=== PATIENT | female | born 1955 | race Caucasian/White ===

== ENCOUNTER → 2017-09-07 | Outpatient (CLI) | payer OTHER ==
--- NOTE | 2017-09-08 09:22 | BD ---
EXAMINATION TYPE: MG DEXA axial skeleton. DATE OF EXAM: 09/07/2017 COMPARISON: NONE CLINICAL HISTORY: Height: 63 Weight: 125.7 FRAX RISK QUESTIONS: Alcohol (3 or more units per day): no Family History (Parent hip fracture): no Glucocorticoids (More than 3mos): no (Ex: prednisone, prednisolone, methylprednisolone, dexamethasone, and hydrocortisone). History of Fracture in Adulthood: no Secondary Osteoporosis: 1. Type 1 Diabetes: no 2. Hyperthyroidism: no 3. Menopause before 45: no 4. Malnutrition: no 5. Chronic liver disease: no Rheumatoid Arthritis: no Current Tobacco Use: no RISK FACTORS HISTORY OF: Surgery to Spine/Hip(right/left)/Wrist (right/left): no Family History of Osteoporosis: no Active: yes Diet low in dairy products/other sources of calcium: no Postmenopausal woman: age 52 Take estrogen and/or progesterone medications: yes How long: around 8 years Lost more than 2 inches in height since high school: no Frequent falls: no Poor Health: no Hyperparathyroidism: no Adrenal Insufficiency: no MEDICATIONS: nortriptyline, gabapentin, Cymbalta Additional History: EXAM MEASUREMENTS: Bone mineral densitometry was performed using the SED Web System. Bone mineral density as measured about the Lumbar spine is: ----- L1-L4(G/cm2): 1.043 T Score Values are as follows: ----- L2: -1.3 ----- L3: -0.8 ----- L4: -0.9 ----- L1-L4: -1.1 Bone mineral density has: increased 3.3 % since study of: 01.21.2016 Bone mineral density about the R hip (g/cm2): 0.768 Bone mineral density about the L hip (g/cm2): 0.755 T Score values are as follows: -----R Neck: -1.9 -----L Neck: -2.0 -----R Total: -1.4 -----L Total: -1.5 Bone mineral density has: increased 2.2 % since study of: 01.21.2016 IMPRESSION: Osteopenia about the lumbar spine and bilateral femora. NOTE: T-SCORE=SD OF THE YOUNG ADULT MEAN.
--- NOTE | 2017-09-08 13:54 | MM ---
Reason for exam: screening (asymptomatic). Last mammogram was performed 1 year and 1 month ago. History: Patient is postmenopausal and had first child at age 35. Family history of breast cancer in paternal aunt at age 60. Benign left breast aspiration of the left breast, August 22, 2011. Taking estrogen for 8 years. Taking other hormone. Physical Findings: A clinical breast exam by your physician is recommended on an annual basis and results should be correlated with mammographic findings. MG 3D Screening Mammo W/Cad Bilateral CC, MLO, and XCCL view(s) were taken. Prior study comparison: August 07, 2016, bilateral MG 3d screening mammo w/cad. June 28, 2015, bilateral MG 3d screening mammo w/cad. The breast tissue is heterogeneously dense. This may lower the sensitivity of mammography. No suspicious abnormality in the right breast. There is a 5.5mm asymmetry of the upper left breast at posterior depth just anterior to the pectoralis musculature. ASSESSMENT: Incomplete: need additional imaging evaluation, BI-RAD 0 RECOMMENDATION: Special view mammogram of the left breast. If lesion persists on supplemental views, image directed ultrasound is recommended. [facility] will attempt to contact patient to return for supplemental views and ultrasound if indicated.
== END | disposition home or self-care (01) ==
LOC: RADMAMWWP 15:40
PROVIDERS: ATTEND Obstetrics & Gynecology
DX: Z12.31 Encounter for screening mammogram for malignant neoplasm of breast (principal); M85.88 Other specified disorders of bone density and structure, other site
CPT/HCPCS: 77063; 77067; 77080

== ENCOUNTER → 2017-09-14 | Outpatient (CLI) | payer OTHER ==
--- NOTE | 2017-09-14 09:21 | MM ---
Reason for exam: additional evaluation requested from abnormal screening. Last mammogram was performed less than 1 month ago. History: Patient is postmenopausal and had first child at age 35. Family history of breast cancer in paternal aunt at age 60. Benign left breast aspiration of the left breast, August 22, 2011. Taking estrogen for 8 years beginning at age 54. Taking other hormone. Physical Findings: Nurse did not find any significant physical abnormalities on exam. MG 3D Work Up W/Cad LT ML and spot compression MLO view(s) were taken of the left breast. Prior study comparison: September 07, 2017, bilateral MG 3d screening mammo w/cad. August 07, 2016, bilateral MG 3d screening mammo w/cad. The breast tissue is heterogeneously dense. This may lower the sensitivity of mammography. Finding: There is a 5 mm equal density (isodense), obscured margin irregular mass located 7 cm from the nipple in the 12 o'clock position of the left breast. This partially disperses on compression. New finding since August 07, 2016. These results were verbally communicated with the patient and result sheet given to the patient on 09/14/17. ASSESSMENT: Incomplete: need additional imaging evaluation, BI-RAD 0 RECOMMENDATION: Ultrasound of the left breast.
--- NOTE | 2017-09-14 09:22 | USB ---
Reason for exam: additional evaluation requested from abnormal screening. History: Patient is postmenopausal and had first child at age 35. Family history of breast cancer in paternal aunt at age 60. Benign left breast aspiration of the left breast, August 22, 2011. Taking estrogen for 8 years beginning at age 54. Taking other hormone. US Breast Workup Limited LT Left breast ultrasound demonstrates a 0.6 x 0.6 x 0.3cm hyperechoic lesion at 1 o'clock. These results were verbally communicated with the patient and result sheet given to the patient on 09/14/17. ASSESSMENT: Probably benign, BI-RAD 3 RECOMMENDATION: Follow-up diagnostic mammogram and ultrasound of the left breast in 3 months.
== END | disposition home or self-care (01) ==
LOC: RADMAMWWP 06:59
PROVIDERS: ATTEND Obstetrics & Gynecology
DX: R92.8 Other abnormal and inconclusive findings on diagnostic imaging of breast (principal)
CPT/HCPCS: 77065; 76642; G0279

== ENCOUNTER → 2017-12-14 | Outpatient (CLI) | payer OTHER ==
--- NOTE | 2017-12-14 09:08 | MM ---
Reason for exam: follow-up at short interval from prior study. Last mammogram was performed 3 months ago. History: Patient is postmenopausal and had first child at age 35. Family history of breast cancer in paternal aunt at age 60. Benign left breast aspiration of the left breast, August 22, 2011. Taking estrogen for 8 years beginning at age 54. Taking other hormone. Physical Findings: Nurse did not find any significant physical abnormalities on exam. MG 3D Diag Mammo W/Cad LT CC and MLO view(s) were taken of the left breast. Prior study comparison: September 14, 2017, left breast MG 3d work up w/cad LT. September 07, 2017, bilateral MG 3d screening mammo w/cad. The breast tissue is heterogeneously dense. This may lower the sensitivity of mammography. The left superior posterior depth asymmetry appears unchanged from the prior and appears somewhat as fibroglandular tissue on 3D. These results were verbally communicated with the patient and result sheet given to the patient on 12/14/17. ASSESSMENT: Probably benign, BI-RAD 3 RECOMMENDATION: Follow-up diagnostic mammogram of the left breast in 6 months.
--- NOTE | 2017-12-14 09:10 | USB ---
Reason for exam: follow-up at short interval from prior study. History: Patient is postmenopausal and had first child at age 35. Family history of breast cancer in paternal aunt at age 60. Benign left breast aspiration of the left breast, August 22, 2011. Taking estrogen for 8 years beginning at age 54. Taking other hormone. US Breast LT Left breast ultrasound includes all four quadrants, the retroareolar region and axilla. Finding demonstrates no cystic or solid lesion seen. No suspicious sonographic finding. These results were verbally communicated with the patient and result sheet given to the patient on 12/14/17. ASSESSMENT: Probably benign, BI-RAD 3 RECOMMENDATION: Follow-up diagnostic mammogram of the left breast in 6 months.
== END | disposition home or self-care (01) ==
LOC: RADMAMWWP 07:34
PROVIDERS: ATTEND Obstetrics & Gynecology
DX: R92.8 Other abnormal and inconclusive findings on diagnostic imaging of breast (principal)
CPT/HCPCS: 77065; 76641; G0279

== ENCOUNTER 2018-04-07 06:58 | Day surgery (SDC) | payer OTHER ==
[2018-04-05 16:25] VITALS: BMI 21.2
[~2018-04-07 06:58] MED LIST: LIDOCAINE 1% 20 ML VIAL (10MG/ML) FOR IV START INTRADERMA PRN
[2018-04-07 07:29] VITALS: TEMP 98.2
[2018-04-07] MEDS: LACTATED RINGERS 1,000 ML IV SCH ×2 (07:41→08:15)
[2018-04-07] MEDS ORDERED: PROPOFOL 10 MG/ML 20 ML VIAL IV ONE (08:17)
[2018-04-07] MEDS ORDERED: LIDOCAINE 1% INJ 10MG/ML (20 ML MDV) ONE (08:17)
--- NOTE | 2018-04-07 08:35 | P.PCN ---
Date of Procedure: 04/07/18 Procedure(s) Performed: BRIEF HISTORY: Patient is a 63-year-old pleasant- female, scheduled for an elective colonoscopy as a part of history of colon polyps. PROCEDURE PERFORMED: Colonoscopy. PREOPERATIVE DIAGNOSIS: History of colon polyps. IV sedation per Anesthesia. PROCEDURE: After informed consent was obtained, the patient, was brought into the endoscopy unit. IV sedation was administered by Anesthesia under continuous monitoring. Digital rectal examination was normal. Initially the Olympus CF- 160 flexible video colonoscope was then inserted in the rectum, gradually advanced into the cecum without any difficulty. Careful examination was performed as the scope was gradually being withdrawn. Ileocecal valve and the appendiceal orifice were visualized and appeared normal. Prep was excellent. Mucosa of the cecum, ascending colon, transverse colon, descending colon, sigmoid colon, and rectum appeared normal. Retroflexion was performed in the rectum and no lesions were seen. The patient tolerated the procedure well. IMPRESSION: Normal-appearing colon from rectum to cecum with no evidence of colorectal neoplasia. RECOMMENDATIONS: Findings of this examination were discussed with the patient is a family. She was advised to have a repeat surveillance colonoscopy in 5 years because of the prior history of colon polyps..
[2018-04-07 08:40] VITALS: RESP 16
[2018-04-07 09:08] VITALS: BP 150/79; PULSE 70
== END 2018-04-07 09:22 | disposition home or self-care (01) ==
LOC: ORWHC2ENDO 06:58
PROVIDERS: ATTEND Internal Medicine Gastroenterology
DX: Z12.11 Encounter for screening for malignant neoplasm of colon (principal); Z86.010 Personal history of colon polyps; Z79.899 Other long term (current) drug therapy; Z88.8 Allergy status to other drugs, medicaments and biological substances; I34.1 Nonrheumatic mitral (valve) prolapse
CPT/HCPCS: J2001; J2704; G0105; 45378

== ENCOUNTER → 2018-09-21 | Outpatient (CLI) | payer OTHER ==
--- NOTE | 2018-09-22 12:02 | MM ---
Reason for exam: screening (asymptomatic). Last mammogram was performed 9 months ago. History: Patient is postmenopausal and had first child at age 35. Family history of breast cancer in paternal aunt at age 60. Benign left breast aspiration of the left breast, August 22, 2011. Taking estrogen for 8 years beginning at age 54. Taking other hormone. Physical Findings: A clinical breast exam by your physician is recommended on an annual basis and results should be correlated with mammographic findings. MG 3D Screening Mammo W/Cad Bilateral CC and MLO view(s) were taken. Prior study comparison: December 14, 2017, left breast MG 3d diag mammo w/cad LT. September 14, 2017, left breast MG 3d work up w/cad LT. The breast tissue is extremely dense which could obscure a lesion on mammography. No significant changes when compared with prior studies. ASSESSMENT: Benign, BI-RAD 2 RECOMMENDATION: Routine screening mammogram of both breasts in 1 year.
== END | disposition home or self-care (01) ==
LOC: RADMAMWWP 07:01
PROVIDERS: ATTEND Obstetrics & Gynecology
DX: Z12.31 Encounter for screening mammogram for malignant neoplasm of breast (principal)
CPT/HCPCS: 77063; 77067

== ENCOUNTER → 2019-10-04 | Outpatient (CLI) | payer MEDICARE ==
--- NOTE | 2019-10-04 11:14 | MM ---
Reason for exam: screening (asymptomatic). Last mammogram was performed 1 year ago. History: Patient is postmenopausal and had first child at age 35. Family history of breast cancer in paternal aunt at age 60. Benign left breast aspiration of the left breast, August 22, 2011. Took hormonal contraceptives for 2 years. Taking estrogen for 8 years beginning at age 54. Taking other hormone. Physical Findings: A clinical breast exam by your physician is recommended on an annual basis and results should be correlated with mammographic findings. MG 3D Screening Mammo W/Cad Bilateral CC and MLO view(s) were taken. Prior study comparison: September 21, 2018, bilateral MG 3d screening mammo w/cad. December 14, 2017, left breast MG 3d diag mammo w/cad LT. The breast tissue is extremely dense which could obscure a lesion on mammography. No significant changes when compared with prior studies. ASSESSMENT: Negative, BI-RAD 1 RECOMMENDATION: Routine screening mammogram of both breasts in 1 year.
--- NOTE | 2019-10-04 16:26 | BD ---
EXAMINATION TYPE: Axial Bone Density DATE OF EXAM: 10/04/2019 COMPARISON: 09.07.2017 CLINICAL HISTORY: 64 YR OLD FEMALE....ICD-10 CODE: Z78.0 POST MENOPAUSAL Height: 63 Weight: 114 FRAX RISK QUESTIONS: NOTHING TO NOTE HERE RISK FACTORS HISTORY OF: Active: YES Postmenopausal woman: YES AT 54 YR OLD Take estrogen and/or progesterone medications: YES, VAG. ESTROGEN FOR ABOUT 10 YRS Hyperparathyroidism: NO Adrenal Insufficiency: NO MEDICATIONS: Additional Medications: CYMBALTA, VIT D AND MAGNESIUM, Additional History: OSTEOARTHRITIS EXAM MEASUREMENTS: Bone mineral densitometry was performed using the Fuzz System. Bone mineral density as measured about the Lumbar spine is: ----- L1-L4(G/cm2): 1.063 T Score Values are as follows: ----- L1: -1.8 ----- L2: -1.1 ----- L3: -0.9 ----- L4: -0.5 ----- L1-L4: -1.0 Bone mineral density has: Increased 1.9% since study of: 09.07.2017 Bone mineral density about the R hip (g/cm2): 0.823 Bone mineral density about the L hip (g/cm2): 0.801 T Score values are as follows: -----R Neck: -1.6 -----L Neck: -2.1 -----R Total: -1.5 -----L Total: -1.6 Bone mineral density has: Decreased -1.2% since study of: 09.07.2017 FRAX%s: THERE IS A 9.7% CHANCE FOR A MAJOR OSTEOPOROTIC FX AND A 1.7% FOR HIP.....PROBABILITY FOR F X IN 10 YRS TIME IMPRESSION: Osteopenia (T Score between -2.5 and -1). There is slightly increased risk of fracture and the patient may be considered for treatment. Re-Screen 2-5 years. NOTE: T-SCORE=SD OF THE YOUNG ADULT MEAN.
== END | disposition home or self-care (01) ==
LOC: RADMAMWWP 06:55
PROVIDERS: ATTEND Obstetrics & Gynecology
DX: Z12.31 Encounter for screening mammogram for malignant neoplasm of breast (principal); M85.80 Other specified disorders of bone density and structure, unspecified site
CPT/HCPCS: 77063; 77067; 77080

== ENCOUNTER → 2020-08-02 | Outpatient (CLI) | payer MEDICARE ==
--- NOTE | 2020-08-02 15:17 | US ---
EXAMINATION TYPE: US abdomen complete DATE OF EXAM: 08/02/2020 COMPARISON: US 11/25/2013 CLINICAL HISTORY: R10.10 Upper abdominal pain. EXAM MEASUREMENTS: Liver Length: 11.9 cm Gallbladder Wall: 0.2 cm CBD: 0.5 cm Spleen: 8.7 cm Right Kidney: 9.0 x 8.6 x 5.6 cm Left Kidney: 10.8 x 4.5 x 5.0 cm Pancreas: Obscured by bowel gas, visualized portions wnl Liver: wnl Gallbladder: wnl Evidence for sonographic Gonzalez's sign: no CBD: wnl Spleen: wnl Right Kidney: No hydronephrosis or masses seen Left Kidney: No hydronephrosis. Cyst visualized upper pole measuring 3.1 x 3.1 x 2.5 cm. Echogenic f oci visualized upper pole measuring 1.1 cm Upper IVC: wnl Abd Aorta: wnl The visualized liver is homogenous. The intrahepatic portion of the IVC and visualized abdominal aor ta are within normal limits. There is no evidence of shadowing mobile cholelithiasis. Common bile d uct is unremarkable. The visualized portions of the pancreas are homogenous. The spleen is unremark able. Kidneys are symmetric and free of hydronephrosis. A 3.1 cm exophytic thin-walled benign-appe aring cyst laterally upper pole left kidney by technologist not clearly seen on prior study. IMPRESSION: Possible new nonobstructing calculus upper pole of left kidney. Consider CT to further ev aluate.
== END | disposition home or self-care (01) ==
LOC: RADUSWWP 14:21
PROVIDERS: ATTEND Internal Medicine Geriatric Medicine
DX: R10.10 Upper abdominal pain, unspecified (principal)
CPT/HCPCS: 76700

== ENCOUNTER → 2020-08-29 | Outpatient (CLI) | payer MEDICARE ==
--- NOTE | 2020-08-29 09:41 | CT ---
EXAMINATION TYPE: CT abdomen pelvis wo con DATE OF EXAM: 08/29/2020 COMPARISON: Ultrasound 07/23/2020 HISTORY: Renal stone CT DLP: 464 mGycm Automated exposure control for dose reduction was used. TECHNIQUE: Helical acquisition of images was performed from the lung bases through the pelvis. FINDINGS: LUNG BASES: No significant abnormality is appreciated. LIVER/GB: No significant abnormality is appreciated. PANCREAS: No significant abnormality is seen. SPLEEN: No significant abnormality is seen. ADRENALS: No significant abnormality is seen. KIDNEYS: Left kidney: There is a 2.6 cm mass involving the upper pole left kidney measuring 1 Hounsfield units compatible severe there are 2 punctate 1 mm lower pole left renal calculi and a linear 3 mm upper po le right renal calculus. No hydronephrosis. Right kidney: There are approximately 7 less than 5 mm right renal calculi with no hydronephrosis. ADENOPATHY: None visualized. OSSEOUS STRUCTURES: Severe degenerative disc disease L5-S1. BOWEL: No significant abnormality is seen. OTHER: Aorta of normal caliber. IMPRESSION: 1. Bilateral nonobstructing renal calculi. 2. Simple cyst upper pole left kidney measuring 2.6 cm.
== END | disposition home or self-care (01) ==
LOC: RADCTMAIN 08:35
PROVIDERS: ATTEND Internal Medicine Geriatric Medicine
DX: N20.0 Calculus of kidney (principal); N28.1 Cyst of kidney, acquired
CPT/HCPCS: 74176

== ENCOUNTER → 2020-12-03 | Outpatient (CLI) | payer MEDICARE ==
--- NOTE | 2020-12-05 09:24 | MM ---
Reason for exam: screening (asymptomatic). Last mammogram was performed 1 year and 2 months ago. History: Patient is postmenopausal and had first child at age 35. Family history of breast cancer in paternal aunt at age 60. Benign left breast aspiration of the left breast, August 22, 2011. Took hormonal contraceptives for 2 years. Taking estrogen for 8 years beginning at age 54. Taking other hormone. Physical Findings: A clinical breast exam by your physician is recommended on an annual basis and results should be correlated with mammographic findings. MG 3D Screening Mammo W/Cad Bilateral CC and MLO view(s) were taken. Prior study comparison: October 04, 2019, bilateral MG 3d screening mammo w/cad. September 21, 2018, bilateral MG 3d screening mammo w/cad. The breast tissue is extremely dense which could obscure a lesion on mammography. Subareolar nodularity on the right is more defined. ASSESSMENT: Incomplete: need additional imaging evaluation, BI-RAD 0 RECOMMENDATION: Ultrasound of the right breast. [facility] will attempt to contact patient to return for ultrasound.
== END | disposition home or self-care (01) ==
LOC: RADMAMWWP 15:52
PROVIDERS: ATTEND Obstetrics & Gynecology
DX: Z12.31 Encounter for screening mammogram for malignant neoplasm of breast (principal); Z78.0 Asymptomatic menopausal state; Z80.3 Family history of malignant neoplasm of breast
CPT/HCPCS: 77063; 77067

== ENCOUNTER → 2020-12-11 | Outpatient (CLI) | payer MEDICARE ==
--- NOTE | 2020-12-11 13:36 | USB ---
Reason for exam: additional evaluation requested from abnormal screening. History: Patient is postmenopausal and had first child at age 35. Family history of breast cancer in paternal aunt at age 60. Benign left breast aspiration of the left breast, August 22, 2011. Took hormonal contraceptives for 2 years. Taking estrogen for 8 years beginning at age 54. Taking other hormone. Physical Findings: Nurse did not find any significant physical abnormalities on exam. US Breast Workup Limited RT Right limited breast ultrasound including focal area of concern, retroareolar and axilla demonstrates a 0.3 x 0.2 x 0.2cm round lesion too small to characterize at 4 o'clock. Benign calcification on mammogram. These results were verbally communicated with the patient and result sheet given to the patient on 12/11/20. ASSESSMENT: Probably benign, BI-RAD 3 RECOMMENDATION: Follow-up diagnostic mammogram of the right breast in 6 months.
== END | disposition home or self-care (01) ==
LOC: RADUSWWP 12:50
PROVIDERS: ATTEND Obstetrics & Gynecology
DX: R92.1 Mammographic calcification found on diagnostic imaging of breast (principal)

== ENCOUNTER → 2021-06-25 | Outpatient (CLI) | payer MEDICARE ==
--- NOTE | 2021-06-25 10:23 | MM ---
Reason for exam: follow-up at short interval from prior study. Last mammogram was performed 7 months ago. History: Patient is postmenopausal and had first child at age 35. Family history of breast cancer in paternal aunt at age 60. Benign left breast aspiration of the left breast, August 22, 2011. Took hormonal contraceptives for 2 years. Taking estrogen for 8 years beginning at age 54. Taking other hormone. Physical Findings: Nurse did not find any significant physical abnormalities on exam. MG 3D Diag Mammo W/Cad RT CC and MLO view(s) were taken of the right breast. Prior study comparison: December 03, 2020, bilateral MG 3d screening mammo w/cad. October 04, 2019, bilateral MG 3d screening mammo w/cad. The breast tissue is extremely dense which could obscure a lesion on mammography. There are benign appearing round calcifications in the right breast. There is no discrete abnormality. These results were verbally communicated with the patient and result sheet given to the patient on 06/25/21. ASSESSMENT: Benign, BI-RAD 2 RECOMMENDATION: Ultrasound of the right breast. (prior abnormal, extremely dense breast tissue)
--- NOTE | 2021-06-25 10:24 | USB ---
Reason for exam: follow-up at short interval from prior study. History: Patient is postmenopausal and had first child at age 35. Family history of breast cancer in paternal aunt at age 60. Benign left breast aspiration of the left breast, August 22, 2011. Took hormonal contraceptives for 2 years. Taking estrogen for 8 years beginning at age 54. Taking other hormone. US Breast Limited RT Right limited breast ultrasound including focal area of concern, retroareolar and axilla demonstrates a 3 x 3mm oval calcification at 4 o'clock. These results were verbally communicated with the patient and result sheet given to the patient on 06/25/21. ASSESSMENT: Benign, BI-RAD 2 RECOMMENDATION: Return to routine screening mammogram schedule for both breasts. Back on schedule.
== END | disposition home or self-care (01) ==
LOC: RADMAMWWP 08:59
PROVIDERS: ATTEND Obstetrics & Gynecology
DX: R92.8 Other abnormal and inconclusive findings on diagnostic imaging of breast (principal)
CPT/HCPCS: 77065; 76642; G0279; 77061

== ENCOUNTER → 2021-08-27 | Outpatient (CLI) | payer MEDICARE ==
--- NOTE | 2021-08-27 10:35 | XR ---
EXAMINATION TYPE: XR KUB DATE OF EXAM: 08/27/2021 COMPARISON: CT scan 08/29/2020 HISTORY: Right flank pain TECHNIQUE: One view abdominal series FINDINGS: The osseous structures are intact. The bowel gas pattern is nonspecific. Calculi overlying the left kidney may be obscured by bowel gas. Punctate approximately 5 calcifications overlying the right thierno l outline. There also is a 5 mm density overlying the transverse processes L3. The pelvis demonstrates no suspicious calcifications. Significant retained fecal debris throughout th e bowel correlate for constipation. Degenerative changes spine and arthropathy of the hips. Calcifica tions in the left upper quadrant appear outside the renal outline and may present splenic granuloma. IMPRESSION: 1. Successful left kidney is limited due to extensive overlying bowel content. 2. Multiple punctate less than 5 mm right renal calculi. There is a 5 mm density overlying the right transverse process of L3 which could be within the right renal pelvis.
== END | disposition home or self-care (01) ==
LOC: RADXRMAIN 10:07
PROVIDERS: ATTEND Urology
DX: N20.0 Calculus of kidney (principal); N20.1 Calculus of ureter
CPT/HCPCS: 74018

== ENCOUNTER → 2021-08-30 | Outpatient (CLI) | payer MEDICARE ==
--- NOTE | 2021-09-01 22:33 | CT ---
EXAMINATION TYPE: CT abdomen pelvis wo con DATE OF EXAM: 08/30/2021 COMPARISON: 08/29/2020 HISTORY: 66-year-old female N20.0, Calculus of kidney CT DLP: 213.40 mGycm. Automated exposure control for dose reduction was used. TECHNIQUE: Contiguous axial scanning of the abdomen and pelvis without IV contrast. Coronal and sagit ira reconstructions performed. FINDINGS: Heart normal size without pericardial effusion. Lung bases clear without pleural effusion. There appears to be a tiny hiatal hernia. Lack of IV contrast limits assessment of the solid abdominal viscera, lymph nodes, and vascular struc tures. There is further limitation due to paucity of intra-abdominal fat. Noncontrast appearance of the liver, collapsed gallbladder, adrenal glands, spleen, and pancreas show no gross adenopathy. There is bilateral numerous nonobstructive renal calculi in both eyes, largest on the right measuring up to 6 mm. Approximately 10 are present on each side, many are punctate 2 to 3 mm. 3.5 cm posterior upper pole left renal cortical cyst slightly larger from 3.1 cm, previously.. On the left, there is mild hydronephrosis with a 3 mm calculus near the left UPJ, axial image 109. Suspect some prominent fluid-filled small bowel loops throughout. No dilated small bowel. Assessment of the abdominal lymph nodes limited due to possibility of intra-abdominal fat. Unable to discretely identify the appendix due to crowded bowel. Moderate stool burden. Bladder not distended. Uterus anteverted. Both ovaries are visualized. No abnormal fluid collection i n the pelvis. No obvious pelvic lymphadenopathy. Bones: Mild degenerative change at the hips. Hypertrophic facet arthropathy mid to lower lumbar spine with grade 1 anterolisthesis L4-L5. Moderate to advanced degenerative disc disease L5-S1. IMPRESSION: 1. A 3 mm stone near the left UPJ with mild obstructive uropathy. 2. Additional bilateral nonobstructive renal calculi in both sides measuring up to 6 mm. Most are pu nctate 2 to 3 mm.
== END | disposition home or self-care (01) ==
LOC: RADCTMAIN 14:04
PROVIDERS: ATTEND Urology
DX: N13.9 Obstructive and reflux uropathy, unspecified (principal); N20.0 Calculus of kidney
CPT/HCPCS: 74176

== ENCOUNTER → 2021-10-10 | Outpatient (CLI) | payer MEDICARE ==
--- NOTE | 2021-10-10 10:22 | CT ---
EXAMINATION TYPE: CT abdomen pelvis wo con DATE OF EXAM: 10/10/2021 COMPARISON: CT dated 08/30/2021 HISTORY: Bilateral renal stones CT DLP: 228.4 mGycm Automated exposure control for dose reduction was used. TECHNIQUE: Helical acquisition of images was performed from the lung bases through the pelvis. FINDINGS: The previously described obstructing 3 mm stone at the left ureterovesical junction is not appreciate d today. Resolution of the previously seen left-sided hydroureter and hydronephrosis. No right-sided hydroureter or hydronephrosis. Scattered multiple bilateral nonobstructing renal calculi measuring up to 7 mm at the midportion of the right kidney and 4 mm at the upper pole of the left kidney. Left up per pole renal cyst without suspicious feature, stable. Grossly unremarkable urinary bladder. Slightl y bulky uterus, suboptimally assessed. No gross adnexal mass by this nonenhanced CT scan. Unremarkable unenhanced CT appearance of the liver, gallbladder, spleen, pancreas and adrenals. Scatt ered arterial atherosclerotic calcifications. Unremarkable nondistended stomach and duodenum. No evid ence of bowel obstruction. Suboptimal assessment of the small and large bowel due to paucity of intra -abdominal fat. Significant fecal loading of the colon suggestive of constipation. Small lesion or mi ld acute bowel abnormality cannot be excluded by this CT scan. No suspicious lymphadenopathy or sizab le ascites. Unremarkable lung bases. Degenerative changes L4-L5 and L5-S1 levels. No aggressive bone lesion. IMPRESSION: Resolution of the previously seen left-sided hydroureter and hydronephrosis. The previously described obstructing 3 mm stone at the left ureterovesical junction is not appreciated today. Persistent bila teral multiple nonobstructing renal calculi as described above. Suspected constipation, please correl ate clinically. Other incidental findings as described above.
== END | disposition home or self-care (01) ==
LOC: RADCTMAIN 08:54
PROVIDERS: ATTEND Urology
DX: N20.0 Calculus of kidney (principal); N20.1 Calculus of ureter
CPT/HCPCS: 74176

== ENCOUNTER → 2021-12-23 | Outpatient (CLI) | payer MEDICARE ==
[2021-12-23 14:39] LABS: Basophils # (A) 0.02 X 10*3/uL (0.00-0.10); Basophils % (A) 0.4 %; Eosinophils # (A) 0.05 X 10*3/uL (0.04-0.35); Eosinophils % (A) 1.1 %; HCT 41.3 % (37.2-46.3); HGB 13.3 g/dL (12.0-15.0); Immature Grans, Automated 0.2 %; Lymphocytes # (A) 0.96 X 10*3/uL (0.90-5.00); MCH 30.4 pg (27.0-32.0); MCHC 32.2 g/dL (32.0-37.0); MCV 94.5 fL (80.0-97.0); Mean Platelet Volume 10.3 fL (9.5-12.2); Monocytes % (A) 8.8 %; NRBC Per 100 WBC 0 /100 WBCS (0.0-0.0); Neutrophils # (A) 3.13 X 10*3/uL (1.80-7.70); Neutrophils % (A) 68.5 %; Platelet Count 294 X 10*3/uL (140-440); RBC 4.37 X 10*6/uL (4.10-5.20); RDW 12.6 % (11.5-14.5); WBC 4.57 X 10*3/uL (4.50-10.00)
[2021-12-23 14:47] LABS: African American GFR (CKD) 84.7 (60.0-200.0); Anion Gap 8.8 mmol/L (10.00-18.00); Blood Urea Nitrogen 17.1 mg/dL (9.0-27.0); Carbon Dioxide 28.8 mmol/L (20.0-27.5); Non-African American GFR(CKD) 73.1 (60.0-200.0); Potassium 4.1 mmol/L (3.5-5.5)
[2021-12-23 16:40] LABS: Appearance,Urine Clear (Clear); Bilirubin,Urine Negative (Negative); Blood,Urine Negative (Negative); Color,Urine Yellow (Yellow); Ketones,Urine Negative (Negative); Nitrite,Urine Negative (Negative); Specific Gravity,Urine 1.012 (1.001-1.030); Urobilinogen,Urine 0.2 (0.2,1.0)
[2021-12-23 16:52] LABS: Bacteria,Urine None Seen /HPF (None Seen)
== END | disposition home or self-care (01) ==
LOC: LABPAT 08:37
PROVIDERS: ATTEND Urology
DX: Z01.812 Encounter for preprocedural laboratory examination (principal); N20.0 Calculus of kidney
CPT/HCPCS: 36415; 80051; 81001; 82565; 84520; 85025

== ENCOUNTER → 2022-02-04 | Outpatient (CLI) | payer MEDICARE ==
--- NOTE | 2022-02-04 08:24 | BD ---
EXAMINATION TYPE: Axial Bone Density DATE OF EXAM: 02/04/2022 COMPARISON: NONE CLINICAL HISTORY: 66 year old Female. ICD-10 CODE: M85.88 DISORDER OF BONE Height: 63 Weight: 112.4 FRAX RISK QUESTIONS: Alcohol (3 or more units per day): no Family History (Parent hip fracture): no Glucocorticoids (More than 3mos): no (Ex: prednisone, prednisolone, methylprednisolone, dexamethasone, and hydrocortisone). History of Fracture in Adulthood: no Secondary Osteoporosis: 1. Type 1 Diabetes: no 2. Hyperthyroidism: no 3. Menopause before 45: no 4. Malnutrition: no 5. Chronic liver disease: no Rheumatoid Arthritis: no Current Tobacco Use: no RISK FACTORS HISTORY OF: Surgery to Spine/Hip(right/left)/Wrist (right/left): no Family History of Osteoporosis: no Active: yes Diet low in dairy products/other sources of calcium: yes Postmenopausal woman: yes Take estrogen and/or progesterone medications: yes How lon years Lost more than 2 inches in height since high school: no MEDICATIONS: Additional History: EXAM MEASUREMENTS: Bone mineral densitometry was performed using the [employer] System. Bone mineral density as measured about the Lumbar spine is: ----- L1-L4(G/cm2): 1.003 T Score Values are as follows: ----- L1: -2.2 ----- L2: -1.5 ----- L3: -1.4 ----- L4: -1.1 ----- L1-L4: -1.5 Bone mineral density has: decreased -5.8 % since study of: 10.04.2019 Bone mineral density about the R hip (g/cm2): 0.745 Bone mineral density about the L hip (g/cm2): 0.724 T Score values are as follows: -----R Neck: -2.1 -----L Neck: -2.3 -----R Total: -1.7 -----L Total: -1.9 Bone mineral density has: decreased -3.7 % since study of: 10.04.2019 FRAX%s: The graph provided illustrates a 11.2% chance for a major osteoporotic fx and a 2.4% chance f or the hips probability for fx in 10 years time. IMPRESSION: Osteopenia (T Score between -2.5 and -1). There is slightly increased risk of fracture and the patient may be considered for treatment. Re-Screen 2-5 years. NOTE: T-SCORE=SD OF THE YOUNG ADULT MEAN.
--- NOTE | 2022-02-05 07:29 | MM ---
Reason for Exam: Screening (asymptomatic). Last mammogram was performed 1 year(s) and 2 month(s) ago. Patient History: Menarche at age 12. First Full-Term at age 35. Late child-bearing (after 30). Postmenopausal. Currently using Estrogen, beginning at age 54 for 8 years. Patient used Hormonal Contraceptives for 2 years. 08/22/2011, Benign Cyst Aspiration on the left side. Paternal aunt had breast cancer, age 60. Risk Values: Patti 5 year model risk: 2.3%. NCI Lifetime model risk: 7.9%. Prior Study Comparison: 10/04/2019 Bilateral Screening Mammogram, [facility]. 12/03/2020 Bilateral Screening Mammogram, [facility]. 06/25/2021 Right Diagnostic Mammogram, [facility]. Tissue Density: The breast tissue is extremely dense which could obscure a lesion on mammography. Findings: Analyzed By CAD. There is no suspicious group of microcalcifications or new suspicious mass in either breast. Stable benign calcifications present. Overall Assessment: Benign, BI-RAD 2 Management: Screening Mammogram of both breasts in 1 year. A clinical breast exam by your physician is recommended on an annual basis and results should be correlated with mammographic findings. Electronically signed and approved by: Nahun Combs M.D. Radiologis
== END | disposition home or self-care (01) ==
LOC: RADMAMWWP 06:56
PROVIDERS: ATTEND Obstetrics & Gynecology
DX: Z12.31 Encounter for screening mammogram for malignant neoplasm of breast (principal); M85.88 Other specified disorders of bone density and structure, other site
CPT/HCPCS: 77063; 77067; 77080

== ENCOUNTER → 2023-02-05 | Outpatient (CLI) | payer MEDICARE ==
--- NOTE | 2023-02-06 08:26 | MM ---
Reason for Exam: Screening (asymptomatic). Last screening mammogram was performed 12 month(s) ago. Patient History: Menarche at age 12. First Full-Term at age 35. Late child-bearing (after 30). Postmenopausal. Currently using Estrogen, beginning at age 54 for 8 years. Patient used Hormonal Contraceptives for 2 years. 08/22/2011, Benign Cyst Aspiration on the left side. Paternal aunt had breast cancer, age 60. Risk Values: Patti 5 year model risk: 2.4%. NCI Lifetime model risk: 7.6%. Prior Study Comparison: 12/03/2020 Bilateral Screening Mammogram, [facility]. 06/25/2021 Right Diagnostic Mammogram, [facility]. 02/04/2022 Bilateral MG 3D screening mammo w/cad, [facility]. Tissue Density: The breast tissue is extremely dense which could obscure a lesion on mammography. Findings: Analyzed By CAD. There is no suspicious group of microcalcifications or new suspicious mass in either breast. Overall Assessment: Benign, BI-RAD 2 Management: Screening Mammogram of both breasts in 1 year. . Patient should continue monthly self-breast exams. A clinical breast exam by your physician is recommended on an annual basis. This exam should not preclude additional follow-up of suspicious palpable abnormalities. Note on Patti scores and lifetime risk: 1. A Patti score greater than 3% is considered moderate risk. If this is the case, consider specialist referral to assess eligibility for a risk reducing agent. 2. If overall lifetime risk for the development of breast cancer is 20% or higher, the patient may qualify for future screening with alternating mammogram and breast MRI. Electronically signed and approved by: Nahun Combs M.D. Radiologis
== END | disposition home or self-care (01) ==
LOC: RADMAMWWP 07:48
PROVIDERS: ATTEND Obstetrics & Gynecology
DX: Z12.31 Encounter for screening mammogram for malignant neoplasm of breast (principal); Z78.0 Asymptomatic menopausal state; Z80.3 Family history of malignant neoplasm of breast
CPT/HCPCS: 77063; 77067

== ENCOUNTER 2023-04-08 07:22 | Day surgery (SDC) | payer MEDICARE ==
[2023-04-03 14:27] VITALS: BMI 19.1
[~2023-04-08 07:22] MED LIST changes: +LACTATED RINGERS 1,000 ML IV SCH; -LIDOCAINE 1% 20 ML VIAL (10MG/ML) FOR IV START INTRADERMA PRN
[2023-04-08 08:11] VITALS: RESP 16; TEMP 97.7
[2023-04-08] MEDS ORDERED: LACTATED RINGERS 1,000 ML IV ONE ×2 (08:34)
[2023-04-08] MEDS ORDERED: PROPOFOL 10 MG/ML 20 ML VIAL IV ONE (08:38)
[2023-04-08] MEDS ORDERED: LIDOCAINE 2% INJ 20 MG/ML (2 ML VIAL) ONE (08:38)
--- NOTE | 2023-04-08 08:55 | P.PCN ---
Date of Procedure: 04/08/23 Procedure(s) Performed: BRIEF HISTORY: Patient is a 67-year-old pleasant white female scheduled for an elective colonoscopy as a part of evaluation of prior history of colon polyps. Last colonoscopy was 5 years ago. PROCEDURE PERFORMED: Colonoscopy with biopsy. PREOPERATIVE DIAGNOSIS: History of colon polyps. IV sedation per Anesthesia. PROCEDURE: After informed consent was obtained, the patient, was brought into the endoscopy unit. IV sedation was administered by Anesthesia under continuous monitoring. Digital rectal examination was normal. Initially the Olympus CF-160 flexible video colonoscope was then inserted in the rectum, gradually advanced into the cecum without any difficulty. Careful examination was performed as the scope was gradually being withdrawn. Ileocecal valve and the appendiceal orifice were visualized and appeared normal. Prep was excellent. Mucosa of the cecum, ascending colon, transverse colon, descending colon, appeared normal. In the sigmoid: There was a 3-4 mm sessile polyp removed by cold biopsy. Rest of the sigmoid colon, and rectum appeared normal. Retroflexion was performed in the rectum and no lesions were seen. The patient tolerated the procedure well. IMPRESSION: 3-4 mm sessile sigmoid polyp status post cold biopsy Rest of the colon appeared normal RECOMMENDATIONS: Findings of this examination were discussed with the patient as well as a family. She was advised to follow with the biopsy results and have a repeat colonoscopy in 5 years.
[2023-04-08 09:22] VITALS: BP 131/77; PULSE 57
== END 2023-04-08 09:36 | disposition home or self-care (01) ==
LOC: ORWHC2ENDO 07:22
PROVIDERS: ATTEND Internal Medicine Gastroenterology
DX: Z12.11 Encounter for screening for malignant neoplasm of colon (principal); K63.5 Polyp of colon; I10 Essential (primary) hypertension; Z86.010 Personal history of colon polyps; K74.60 Unspecified cirrhosis of liver; Z98.890 Other specified postprocedural states; Z79.899 Other long term (current) drug therapy
CPT/HCPCS: 88305; 45380; J2704; J2001

== ENCOUNTER → 2024-02-10 | Outpatient (CLI) | payer MEDICARE ==
--- NOTE | 2024-02-11 08:38 | MM ---
Reason for Exam: Screening (asymptomatic). Last screening mammogram was performed 12 month(s) ago. Patient History: Menarche at age 12. First Full-Term at age 35. Late child-bearing (after 30). Postmenopausal. Currently using Estrogen, beginning at age 54 for 8 years. Patient used Hormonal Contraceptives for 2 years. 08/22/2011, Benign Cyst Aspiration on the left side. Paternal aunt had breast cancer, age 60. Risk Values: Patti 5 year model risk: 2.4%. NCI Lifetime model risk: 7.3%. Prior Study Comparison: 06/25/2021 Right Diagnostic Mammogram, [facility]. 02/04/2022 Bilateral MG 3D screening mammo w/cad, [facility]. 02/05/2023 Bilateral MG 3D screening mammo w/cad, [facility]. Tissue Density: The breasts are heterogeneously dense, which may obscure small masses. Findings: Analyzed By CAD. There is no suspicious group of microcalcifications or new suspicious mass in either breast. Overall Assessment: Benign, BI-RAD 2 Management: Screening Mammogram of both breasts in 1 year. . Patient should continue monthly self-breast exams. A clinical breast exam by your physician is recommended on an annual basis. This exam should not preclude additional follow-up of suspicious palpable abnormalities. Note on Patti scores and lifetime risk: 1. A Patti score greater than 3% is considered moderate risk. If this is the case, consider specialist referral to assess eligibility for a risk reducing agent. 2. If overall lifetime risk for the development of breast cancer is 20% or higher, the patient may qualify for future screening with alternating mammogram and breast MRI. Electronically signed and approved by: Nahun Combs M.D. Radiologis
== END | disposition home or self-care (01) ==
LOC: RADMAMWWP 07:50
PROVIDERS: ATTEND Obstetrics & Gynecology
DX: Z12.31 Encounter for screening mammogram for malignant neoplasm of breast (principal); Z78.0 Asymptomatic menopausal state; Z80.3 Family history of malignant neoplasm of breast
CPT/HCPCS: 77063; 77067

== ENCOUNTER → 2024-02-10 | Outpatient (CLI) | payer MEDICARE ==
--- NOTE | 2024-02-10 09:13 | BD ---
EXAMINATION TYPE: Axial Bone Density DATE OF EXAM: 02/10/2024 CLINICAL HISTORY: 68 years old Female. ICD-10 CODE: Z13.820 ENCOUNTER FOR SCREENING FOR OSTEOPOROSIS Height: 5 ft 2 1/2 in Weight: 112 FRAX RISK QUESTIONS: Alcohol (3 or more units per day): no Family History (Parent hip fracture): no Glucocorticoids (More than 3mos): no (Ex: prednisone, prednisolone, methylprednisolone, dexamethasone, and hydrocortisone). History of Fracture in Adulthood: no Secondary Osteoporosis: 1. Type 1 Diabetes: no 2. Hyperthyroidism: no 3. Menopause before 45: no 4. Malnutrition: no 5. Chronic liver disease: no Rheumatoid Arthritis: no Current Tobacco Use: no RISK FACTORS HISTORY OF: Surgery to Spine/Hip(right/left)/Wrist (right/left): MEDICATIONS: Thyroid Medications: none Osteoporosis Medications: none EXAM MEASUREMENTS: Bone mineral densitometry was performed using the [employer] System. Bone mineral density as measured about the Lumbar spine is: ----- L1-L4(G/cm2): 1.032 T Score Values are as follows: ----- L1: -2.3 ----- L2: -1.4 ----- L3: -0.8 ----- L4: -0.8 ----- L1-L4: -1.2 Z Score Values are as follows: ----- L1: -0.2 ----- L2: 0.7 ----- L3: 1.3 ----- L4: 1.3 ----- L1-L4: 0.9 Bone mineral density has: increased 2.9 % since study of: 2021 Bone mineral density about the R hip (g/cm2): 0.706 Bone mineral density about the L hip (g/cm2): 0.702 T Score values are as follows: -----R Neck: -2.4 -----L Neck: -2.4 -----R Total: -1.9 -----L Total: -2.0 Z Score values are as follows: -----R Neck: -0.4 -----L Neck: -0.4 -----R Total: -0.1 -----L Total: -0.2 Bone mineral density has: decreased -2.3 % since study of: 2021 FRAX%s: The graph provided illustrates a 12.6 % chance for a major osteoporotic fx and a 3.2 % chance for the hips probability for fx in 10 years time. IMPRESSION: Osteopenia (T Score between -2.5 and -1). There is slightly increased risk of fracture and the patient may be considered for treatment. Re-Screen 2-5 years. NOTE: T-SCORE=SD OF THE YOUNG ADULT MEAN.
== END | disposition home or self-care (01) ==
LOC: RADBDWWP 07:46
PROVIDERS: ATTEND Internal Medicine Geriatric Medicine
DX: Z13.820 Encounter for screening for osteoporosis (principal); M85.88 Other specified disorders of bone density and structure, other site
CPT/HCPCS: 77080

== ENCOUNTER 2024-05-19 14:43 | Emergency (ER) | payer MEDICARE ==
[2024-05-19 15:02] VITALS: RESP 18
--- NOTE | 2024-05-19 15:25 | ED ---
Fall HPI - General Chief Complaint: Fall Stated Complaint: L leg injury Source: patient, RN notes reviewed Mode of arrival: EMS - History of Present Illness Initial Comments: This is a 68-year-old female presenting with left leg pain following a fall this morning patient endorses falling off a stool and landing flat on her left foot causing the extra weight from the fall to travel up her leg into her left thigh. Endorses significant pain at that time when she then went to [facility] ER for further evaluation. Patient had left foot, ankle, leg, knee, femur, hip radiograph and CT scan where a left tibial plateau fracture was seen. Patient states no other fractures or injuries were found otherwise. Patient states that Dr. Barr from [facility] recommended transfer to [facility] so Dr. Jackman from orthopedics can evaluate CT scan for further guidance. patient endorses last receiving Dilaudid for pain at around 10 AM with significant relief (6 out of 10). Patient denies distal/pedal paresthesia, pallor, weakness. Patient states she is also COVID-19 positive on day 4 of symptoms with only ongoing upper respiratory symptoms. MD Complaint: fall Onset/Timin -: days(s) Time: 09:00 Fall From: chair Fall Witnessed: no Place Fall Occurred: home Loss of Consciousness: none Prolonged Down Time?: no Symptoms Prior to Fall: none Location - Extremities: Left: Thigh, Knee, Leg, Ankle, Foot Severity: moderate Severity scale (1-10): 6 - Related Data Home Medications Medication Instructions Recorded Confirmed Cholecalciferol [Vitamin D3] 4,000 unit PO DAILY 10/19/15 04/03/23 Magnesium 500 mg PO DAILY 10/19/15 04/03/23 [place]-3 Fatty Acids/Fish Oil [Fish 1,200 mg PO DAILY 10/19/15 04/03/23 Oil 1,000 mg Softgel] DULoxetine HCL [Cymbalta] 30 mg PO DAILY 04/05/18 04/03/23 Ubidecarenone [Co Q-10] 100 mg PO DAILY 04/05/18 04/03/23 Estradiol Cream [Estrace Cream 1 gm VAGINAL Q7DAYS 12/26/21 04/03/23 0.01%] Nebivolol [Bystolic] 5 mg PO DAILY 04/03/23 04/03/23 Previous Rx's Medication Instructions Recorded Acetaminophen-Codeine 300-30mg 1 tab PO Q4H PRN #20 tablet 05/19/24 [Tylenol #3] Allergies Allergy/AdvReac Type Severity Reaction Status Date / Time prochlorperazine AdvReac extrapyramidal Verified 04/08/23 08:07 [From Compazine] symptoms prochlorperazine edisylate AdvReac extrapyramidal Verified 04/08/23 08:07 [From Compazine] symptoms prochlorperazine maleate AdvReac extrapyramidal Verified 04/08/23 08:07 [From Compazine] symptoms Review of Systems ROS Statement: Those systems with pertinent positive or pertinent negative responses have been documented in the HPI. ROS Other: All systems not noted in ROS Statement are negative. Past Medical History Past Medical History: Mitral Valve Prolapse (MVP) Additional Past Medical History / Comment(s): past hx. colon polyps History of Any Multi-Drug Resistant Organisms: None Reported Additional Past Surgical History / Comment(s): D&C, laparoscopic surgery, repair of episiotomy, vulvar laser surg. Past Anesthesia/Blood Transfusion Reactions: No Reported Reaction Past Psychological History: No Psychological Hx Reported Smoking Status: Never smoker Past Alcohol Use History: Occasional Past Drug Use History: None Reported - Past Family History Mother Family Medical History: COPD Father Additional Family Medical History / Comment(s): - aneurysm Sister(s) Family Medical History: Cancer Brother(s) Family Medical History: Cancer General Exam Limitations: no limitations General appearance: alert, in no apparent distress Head exam: Present: atraumatic, normocephalic, normal inspection Eye exam: Present: normal appearance, PERRL, EOMI. Absent: scleral icterus, conjunctival injection, periorbital swelling ENT exam: Present: normal exam, mucous membranes moist Neck exam: Present: normal inspection. Absent: tenderness, meningismus, lymphadenopathy Respiratory exam: Present: normal lung sounds bilaterally. Absent: respiratory distress, wheezes, rales, rhonchi, stridor Cardiovascular Exam: Present: regular rate, normal rhythm, normal heart sounds. Absent: systolic murmur, diastolic murmur, rubs, gallop, clicks GI/Abdominal exam: Present: soft, normal bowel sounds. Absent: distended, tenderness, guarding, rebound, rigid Extremities exam: Present: normal inspection, full ROM, tenderness (Positive left tibial plateau tenderness and mild ecchymosis along anterior tibia/alejandre. Negative deformity, obvious crepitus, open fracture.), normal capillary refill, other (Distal/pedal neurovascular intact. Dorsalis pedis and posterior tibialis pulse +2. Patient able to wiggle all toes freely. negative pallor or edema). Absent: pedal edema, joint swelling, calf tenderness Back exam: Present: normal inspection Neurological exam: Present: alert, oriented X3, CN II-XII intact Psychiatric exam: Present: normal affect, normal mood Skin exam: Present: warm, dry, intact, normal color. Absent: rash Course Vital Signs 05/19/24 14:48 Temperature 98.3 F Pulse Rate 86 Respiratory 18 Rate Blood Pressure 127/67 O2 Sat by Pulse 100 Oximetry Medical Decision Making - Medical Decision Making Was pt. sent in by a medical professional or institution (, PA, REGISTER REPAIRER, urgent care, hospital, or intermediate...) When possible be specific @ -Like you are on hospital. Dr. Barr Did you speak to anyone other than the patient for history (EMS, parent, family, police, friend...)? What history was obtained from this source @ -No Did you review nursing and triage notes (agree or disagree)? Why? @ -I reviewed and agree with nursing and triage notes Were old charts reviewed (outside hosp., previous admission, EMS record, old EKG, old radiological studies, urgent care reports/EKG's, intermediate records)? Report findings @ -Left leg radiograph and CT scan from [facility] on hospital reviewed. Left knee CT shows complex tibial plateau fracture. Differential Diagnosis (chest pain, altered mental status, abdominal pain women, abdominal pain men, vaginal bleeding, weakness, fever, dyspnea, syncope, headache, dizziness, GI bleed, back pain, seizure, CVA, palpatations, mental health, musculoskeletal)? @ -Tibial plateau fracture as shown in CT scan EKG interpreted by me (3pts min.). @ -None done X-rays interpreted by me (1pt min.). @ -None done CT interpreted by me (1pt min.). @ -None done U/S interpreted by me (1pt. min.). @ -None done What testing was considered but not performed or refused? (CT, X-rays, U/S, labs)? Why? @ -None What meds were considered but not given or refused? Why? @ -None Did you discuss the management of the patient with other professionals (professionals i.e. , PA, REGISTER REPAIRER, lab, RT, psych nurse, long term care social worker, tunnel drier operator, teacher, forward air controller/air officer, outpatient case manager)? Give summary @ -No Was smoking cessation discussed for >3mins.? @ -No Was critical care preformed (if so, how long)? @ -No Were there social determinants of health that impacted care today? How? (Homelessness, low income, unemployed, alcoholism, drug addiction, transportation, low edu. Level, literacy, decrease access to med. care, halfway, rehab)? @ -No Was there de-escalation of care discussed even if they declined (Discuss DNR or withdrawal of care, Hospice)? DNR status @ -No What co-morbidities impacted this encounter? (DM, HTN, Smoking, COPD, CAD, Cancer, CVA, ARF, Chemo, Hep., AIDS, mental health diagnosis, sleep apnea, morbid obesity)? @ -None Was patient admitted / discharged? Hospital course, mention meds given and route, prescriptions, significant lab abnormalities, going to OR and other pertinent info. @ -Discharged. Patient given 0.5 mg Dilaudid IM for further pain control. Patient given paper Rx T3 p.o. to fill for ongoing pain control. Patient advised to remain in knee stabilizer and stay off feet until she is able to follow-up with Dr. Tran regarding her injury and further treatment moving forward. [facility] contacted and advised to have Dr. Tran review patient's left knee CT scan from 05/19/2024 to provide further guidance to patient as far as follow-up and treatment. Patient provided Dr. Valadez address and phone number and will follow-up in the coming days. Undiagnosed new problem with uncertain prognosis? @ -No Drug Therapy requiring intensive monitoring for toxicity (Heparin, Nitro, Insulin, Cardizem)? @ -No Were any procedures done? @ -No Diagnosis/symptom? @ -Tibial plateau fracture Acute, or Chronic, or Acute on Chronic? @ -Acute Uncomplicated (without systemic symptoms) or Complicated (systemic symptoms)? @ -Complicated Side effects of treatment? @ -No Exacerbation, Progression, or Severe Exacerbation? @ -No Poses a threat to life or bodily function? How? (Chest pain, [place], GA, pneumonia, PE, COPD, DKA, ARF, appy, cholecystitis, CVA, Diverticulitis, Homicidal, Suicidal, threat to staff... and all critical care pts) @ -No Disposition Clinical Impression: Tibial plateau fracture, left, Fall Disposition: HOME SELF-CARE Condition: Fair Instructions (If sedation given, give patient instructions): Leg Fracture (ED), Fall Prevention (ED) Prescriptions: Acetaminophen-Codeine 300-30mg [Tylenol #3] 1 tab PO Q4H PRN #20 tablet PRN Reason: pain Is patient prescribed a controlled substance at d/c from ED?: Yes When asked, does pt state using other controlled substances?: No If prescribed controlled substance>3 days was MAPS reviewed?: Yes (No patient information found on MAPS) If opioid is for acute pain is fill amount 7 days or less?: Yes If Rx opioid, was Start Talking consent form obtained?: No Referrals: Ren Jackman DO [Doctor of Osteopathic Medicine] - 1-2 days Time of Disposition: 16:00
[2024-05-19] MEDS: HYDROmorphone 0.5 MG/0.5 ML SYRINGE IM STA (16:02)
[2024-05-19 16:36] VITALS: BP 131/68; PULSE 81; TEMP 97.6
== END 2024-05-19 16:36 | disposition home or self-care (01) ==
LOC: EC 14:43
CPT/HCPCS: 96372; 99283

== ENCOUNTER → 2024-06-03 | Outpatient (CLI) | payer MEDICARE ==
--- NOTE | 2024-06-03 15:04 | US ---
EXAMINATION TYPE: US venous doppler duplex LE LT DATE OF EXAM: 06/03/2024 2:55 PM COMPARISON: NONE CLINICAL INDICATION: Female, 68 years old with history of I80.9PHLEBITIS AND THROMBOPHLEBITIS OF UNSP ECIFIED; No redness or swelling. Hx tibia fracture. TECHNIQUE: The lower extremity deep venous system is examined utilizing real time linear array sonog joey with graded compression, color doppler sonography, and spectral doppler. SIDE PERFORMED: Left FINDINGS: VESSELS IMAGED: Common Femoral Vein Deep Femoral Vein Greater Saphenous Vein * Femoral Vein Popliteal Vein Small Saphenous Vein * Proximal Calf Veins (* superficial vessels) Left Leg: Negative for DVT Grayscale, color doppler, spectral doppler imaging performed of the deep veins of the lower extremiti es. IMPRESSION: 1. No ultrasound evidence for deep venous thrombosis of either lower extremity. [facility], , 06/03/2024 3:01 PM
== END | disposition home or self-care (01) ==
LOC: RADUSWWP 14:26
PROVIDERS: ATTEND Orthopaedic Surgery

== ENCOUNTER → 2024-07-25 | Outpatient (CLI) | payer MEDICARE ==
--- NOTE | 2024-07-26 12:43 | CA ---
Transthoracic Echo Report Name: Earline Del Castillo Age: 69 Gender: F : 1955 Exam Date: 07/25/2024 17:04 Exam Location: [facility] Ht (in): 63 Wt (lb): 107 Ordering Physician: Reese Schaefer MD Attending/Referring Phys: Cloth Folder Hand Heather Boles RDCS Procedure CPT: Indications: I34.0 NONRHEUMATIC MITRAL (VALVE) INSUFFICIENCY Cardiac Hx: Technical Quality: Good Contrast 1: Total Dose (mL): Contrast 2: Total Dose (mL): MEASUREMENTS (Male / Female) Normal Values 2D ECHO LV Diastolic Diameter PLAX 4.3 cm 4.2 - 5.9 / 3.9 - 5.3 cm LV Systolic Diameter PLAX 3.0 cm IVS Diastolic Thickness 0.9 cm 0.6 - 1.0 / 0.6 - 0.9 cm LVPW Diastolic Thickness 1.0 cm 0.6 - 1.0 / 0.6 - 0.9 cm LV Relative Wall Thickness 0.4 RV Internal Dim ED PLAX 2.8 cm LA Systolic Diameter LX 3.1 cm 3.0 - 4.0 / 2.7 - 3.8 cm LV Diastolic Volume MOD 4C 64.3 cm??? LV Systolic Volume MOD 4C 24.1 cm??? LV Ejection Fraction MOD 4C 62.5 % LV Cardiac Index MOD 4C 2138.3 cm???/min???m??? LV Diastolic Length 4C 7.9 cm LV Systolic Length 4C 6.2 cm LV Diastolic Volume MOD 2C 69.0 cm??? LV Systolic Volume MOD 2C 19.8 cm??? LV Ejection Fraction MOD 2C 71.3 % LV Cardiac Index MOD 2C 2621.0 cm???/min???m??? LV Diastolic Length 2C 7.6 cm LV Systolic Length 2C 5.9 cm LA Volume 48.1 cm??? 18 - 58 / 22 - 52 cm??? LA Volume Index 32.9 cm???/m??? 16 - 28 cm???/m??? M-MODE Aortic Root Diameter MM 2.8 cm AV Cusp Separation MM 1.8 cm DOPPLER AV Peak Velocity 162.0 cm/s AV Peak Gradient 10.5 mmHg MV Area PHT 3.5 cm??? Mitral E Point Velocity 83.6 cm/s Mitral A Point Velocity 71.8 cm/s Mitral E to A Ratio 1.2 MV Deceleration Time 214.8 ms TR Peak Velocity 177.9 cm/s TR Peak Gradient 12.7 mmHg Right Ventricular Systolic Press 18.0 mmHg FINDINGS Left Ventricle Left ventricular ejection fraction is estimated at 55-60 %. Left ventricular cavity size normal. Left ventricular wall thickness normal. Normal left ventricular wall motion. Right Ventricle Normal right ventricular size and function. Right ventricular systolic pressure within normal limits. Right Atrium Normal right atrial size. No right atrial thrombus or mass seen. Left Atrium Mildly increased left atrial volume. No left atrial thrombus or mass present. Mitral Valve Structurally normal mitral valve. No evidence for mitral valve prolapse. No mitral stenosis. Trace mitral regurgitation. Aortic Valve Trileaflet aortic valve. No aortic valve stenosis or regurgitation. Tricuspid Valve Structurally normal tricuspid valve. Mild tricuspid regurgitation. Pulmonic Valve Structurally normal pulmonic valve. Trace pulmonic regurgitation. Pericardium No pericardial or pleural effusion. Aorta Normal size aortic root and proximal ascending aorta. CONCLUSIONS Normal LV size and systolic function. Mild mitral and tricuspid regurgitation. No pericardial effusion Previewed by: Dr. Channing Castillo MD (Electronically Signed) Final Date: 26 July 2024 12:43
== END | disposition home or self-care (01) ==
LOC: RADECHMAIN 16:44
PROVIDERS: ATTEND Internal Medicine Geriatric Medicine
DX: I08.1 Rheumatic disorders of both mitral and tricuspid valves (principal)
CPT/HCPCS: 93306

== ENCOUNTER → 2024-08-12 | Outpatient (CLI) | payer MEDICARE ==
[2024-08-12 15:17] LABS: Basophils # (A) 0.02 X 10*3/uL (0.00-0.10); Basophils % (A) 0.4 %; Eosinophils # (A) 0.05 X 10*3/uL (0.04-0.35); Eosinophils % (A) 1.1 %; HGB 13.8 g/dL (12.0-15.0); Lymphocytes # (A) 1.35 X 10*3/uL (0.90-5.00); Lymphocytes % (A) 30.3 %; MCH 29.6 pg (27.0-32.0); MCHC 32.1 g/dL (32.0-37.0); MCV 92.3 FL (80.0-97.0); Mean Platelet Volume 10.4 FL (9.5-12.2); Monocytes # (A) 0.39 X 10*3/uL (0.20-1.00); Monocytes % (A) 8.8 %; NRBC Per 100 WBC 0 X 10*3/uL (0.00-0.01); Neutrophils # (A) 2.63 X 10*3/uL (1.80-7.70); Neutrophils % (A) 59.2 %; Platelet Count 319 X 10*3/uL (140-440); RBC 4.66 X 10*6/uL (4.10-5.20); RDW 12.7 % (11.5-14.5); WBC 4.45 X 10*3/uL (4.50-10.00)
[2024-08-12 16:02] LABS: Chol/HDL Ratio 1.98 Ratio; Iron 144 UG/DL (50-170); LDL Cholesterol,Calculated 111.7 mg/dL (0.0-131.0); Total Iron Binding Capacity 400 UG/DL (228-460); VLDL Calculation 9.32 mg/dL (5.00-40.00)
[2024-08-12 16:03] LABS: ALT 20 U/L (8-44); AST 24 U/L (13-35); Albumin 4.2 g/dL (3.8-4.9); Albumin/Globulin Ratio 1.68 Ratio (1.60-3.17); Alkaline Phosphatase 69 U/L (41-126); BUN/Creat Ratio 25.14 Ratio (12.00-20.00); Blood Urea Nitrogen 17.6 mg/dL (9.0-27.0); Calcium 9.6 mg/dL (8.7-10.3); Carbon Dioxide 28.9 mmol/L (21.6-31.8); Chloride 104 mmol/L (96-109); Globulin 2.5 g/dL (1.6-3.3); Glucose 90 mg/dL (70-110); Potassium 4.5 mmol/L (3.5-5.5); Sodium 143 mmol/L (135-145); T4, Free (Free Thyroxine) 0.95 ng/dL (0.80-1.80); Total Bilirubin 0.6 mg/dL (0.3-1.2); Total Protein 6.7 g/dL (6.2-8.2)
== END | disposition home or self-care (01) ==
LOC: LABWHC1 11:39
PROVIDERS: ATTEND Internal Medicine Geriatric Medicine
DX: Z13.820 Encounter for screening for osteoporosis (principal); D64.9 Anemia, unspecified; E78.2 Mixed hyperlipidemia; E07.9 Disorder of thyroid, unspecified; R73.9 Hyperglycemia, unspecified
CPT/HCPCS: 36415; 80053; 80061; 82306; 83036; 83540; 83550; 84439; 84443; 85025

== ENCOUNTER → 2025-02-14 | Outpatient (CLI) | payer MEDICARE ==
--- NOTE | 2025-02-14 11:17 | MM ---
Reason for Exam: Screening (asymptomatic). Last mammogram was performed 1 year(s) and 1 month(s) ago. Patient History: Menarche at age 12. First Full-Term at age 35. Late child-bearing (after 29). Postmenopausal. Currently using Estrogen, beginning at age 54 for 8 years. Patient used Hormonal Contraceptives for 2 years. 08/22/2011, Benign Cyst Aspiration on the left side. Paternal aunt had breast cancer, age 60. Risk Values: Patti 5 year model risk: 2.4%. NCI Lifetime model risk: 6.9%. Prior Study Comparison: 02/04/2022 Bilateral MG 3D screening mammo w/cad, [facility]. 02/05/2023 Bilateral MG 3D screening mammo w/cad, [facility]. 02/10/2024 Bilateral MG 3D screening mammo w/cad, [facility]. Tissue Density: The breasts are extremely dense, which lowers the sensitivity of mammography. Findings: Analyzed By CAD. There is no suspicious group of microcalcifications or new suspicious mass in either breast. Overall Assessment: Benign, BI-RAD 2 Management: Screening Mammogram of both breasts in 1 year. Given the patient's extremely dense breast tissue, consideration can be given to supplementary screening with breast ultrasound. Patient should continue monthly self-breast exams. A clinical breast exam by your physician is recommended on an annual basis. This exam should not preclude additional follow-up of suspicious palpable abnormalities. Note on Patti scores and lifetime risk: 1. A Patti score greater than 3% is considered moderate risk. If this is the case, consider specialist referral to assess eligibility for a risk reducing agent. 2. If overall lifetime risk for the development of breast cancer is 20% or higher, the patient may qualify for future screening with alternating mammogram and breast MRI. [facility], , 02/14/2025 11:14 AM. Electronically signed and approved by: Shahida Lozano M.D. Radiologist
== END | disposition home or self-care (01) ==
LOC: RADMAMWWP 07:27
PROVIDERS: ATTEND Obstetrics & Gynecology
DX: Z12.31 Encounter for screening mammogram for malignant neoplasm of breast (principal); R92.343 Mammographic extreme density, bilateral breasts; Z78.0 Asymptomatic menopausal state; Z80.3 Family history of malignant neoplasm of breast
CPT/HCPCS: 77063; 77067